=== PATIENT | female | born 1980 | race Caucasian/White ===

== ENCOUNTER 2017-01-29 16:58 | Emergency (ER) | payer OTHER | END 2017-01-29 18:41 | disposition home or self-care (01) | LOC: FER 16:58 | DX: S39.012A Strain of muscle, fascia and tendon of lower back, initial encounter (principal); F17.210 Nicotine dependence, cigarettes, uncomplicated; Z88.2 Allergy status to sulfonamides; Z88.1 Allergy status to other antibiotic agents; Z87.09 Personal history of other diseases of the respiratory system | CPT/HCPCS: J1885; J2930 ==

== ENCOUNTER → 2017-04-20 | Day surgery (SDC) | payer OTHER | END | disposition home or self-care (01) | LOC: FAS 11:52 | DX: R10.9 Unspecified abdominal pain (principal); R19.4 Change in bowel habit; R56.9 Unspecified convulsions; J42 Unspecified chronic bronchitis; K21.9 Gastro-esophageal reflux disease without esophagitis; F17.210 Nicotine dependence, cigarettes, uncomplicated; Z88.2 Allergy status to sulfonamides; Z88.8 Allergy status to other drugs, medicaments and biological substances; Z79.899 Other long term (current) drug therapy; Z98.890 Other specified postprocedural states | CPT/HCPCS: J2704 ==

== ENCOUNTER 2017-04-26 14:44 | Emergency (ER) | payer OTHER | END 2017-04-26 17:18 | disposition home or self-care (01) | LOC: FER 14:44 | DX: G40.909 Epilepsy, unspecified, not intractable, without status epilepticus (principal); F41.9 Anxiety disorder, unspecified; F31.81 Bipolar II disorder; F17.210 Nicotine dependence, cigarettes, uncomplicated; Z79.899 Other long term (current) drug therapy; Z88.2 Allergy status to sulfonamides; Z88.1 Allergy status to other antibiotic agents | CPT/HCPCS: 36415; 70450; 71010; 72125; 80053; 80305; 81003; 82550; 82553; 83605; 84484; 85025; 93005; G0480; J1885; J2060; J2405 ==